=== PATIENT | female | born 1975 | race American Indian/Alaskan Native ===

== ENCOUNTER 2018-12-20 21:47 | Emergency (ER) | payer OTHER ==
[2018-12-20] MEDS ORDERED: ZOFRAN IV ONE (22:49)
[2018-12-20] MEDS ORDERED: BENTYL IM ONE (22:49)
[2018-12-20] MEDS ORDERED: NACL 0.9% 1000 ML 1,000 ML IV ONE (22:49)
[2018-12-20] MEDS ORDERED: PEPCID IV ONE (22:49)
[2018-12-21] MEDS ORDERED: MORPHINE IV ONE (00:17)
--- NOTE | 2018-12-21 00:27 | Cat Scan Report ---
CT head/brain wo con INDICATION: l't side numbness, dizziness. TECHNIQUE: All CT scans at this location are performed using the following dose modulation technique: Automated exposure control. CONTRAST: None. COMPARISON: None available. FINDINGS: The ventricular system is appropriate in size and configuration without midline shift. Nega tive for mass, stroke or hemorrhage. Imaged portions of the paranasal sinuses are clear. IMPRESSION: Negative CT brain without contrast. Signer Name: Armando Pereyar MD Signed: 12/21/2018 12:23 AM Workstation Name: [id number]
[2018-12-21 00:32] LABS: BUN/Creatinine Ratio 7; Blood Urea Nitrogen 7 mg/dL (7-17)
[2018-12-21 00:33] LABS: Alanine Aminotransferase 14 units/L (7-56); Albumin 3.7 g/dL (3.9-5); Calcium 8.8 mg/dL (8.4-10.2); Hemolysis Index 164
--- NOTE | 2018-12-21 00:34 | XRay Report ---
CHEST 1 VIEW INDICATION: ABD PAIN. COMPARISON: 05/09/2012. FINDINGS: Support devices: None. Heart: Within normal limits. Lungs/Pleura: No acute air space or interstitial disease. Lung volumes are mildly diminished. Additional findings: None. IMPRESSION: Diminished lung volumes. Signer Name: Armando Pereyra MD Signed: 12/21/2018 12:30 AM Workstation Name: [id number]
--- NOTE | 2018-12-21 00:36 | XRay Report ---
ABDOMEN 1 VIEW(S) INDICATION / CLINICAL INFORMATION: NVD epigastric pain. COMPARISON: None available. FINDINGS: TUBES / LINES: None. BOWEL GAS PATTERN: No significant abnormality. ADDITIONAL FINDINGS: Calcified uterine fibroid. Previous percutaneous fallopian tube closure. Previou s surgery left upper quadrant. IMPRESSION: No acute abnormality. Signer Name: Armando Pereyra MD Signed: 12/21/2018 12:31 AM Workstation Name: [id number]
[2018-12-21 02:24] VITALS: BP 130/64
[2018-12-21 02:26] LABS: Hematocrit 40.5 % (30.3-42.9); Hemoglobin 13.2 gm/dl (10.1-14.3); Mean Corpuscular HGB Conc 33 % (30-34); Mean Corpuscular Volume 86 fl (79-97); Platelet Count 292 K/mm3 (140-440); Red Blood Count 4.74 M/mm3 (3.65-5.03); Red Cell Distribution Width 13.8 % (13.2-15.2)
--- NOTE | 2018-12-21 02:27 | Emergency Department Report ---
ED General Adult HPI - General Chief complaint: Chest Pain Stated complaint: CHEST PAIN Time Seen by Provider: 12/20/18 22:42 Source: patient, EMS Mode of arrival: Stretcher Limitations: No Limitations - History of Present Illness Initial comments: Patient is a 43 year-old female who is presenting with some epigastric/chest pain. Patient states that 3 days ago symptoms started with nausea and diarrhea. Patient states that his been present for 3 days straight. She's had multiple episodes of nonbloody diarrhea. Patient states she says some weakness as well. Patient states he laid down at approximately 7 PM last night and woke up around 9 PM this chest discomfort. Patient states that the pain is epigastric and sometimes radiates into the upper chest and she also feels some left arm and leg tingling and chin numbness. EMS was called and patient was given aspirin prior to arrival. Patient states pain in the chest wall from a 7 out of 10 to a 3. Patient's denied having any weakness in her arms or legs or difficulty speaking. Severity scale (0 -10): 5 - Related Data Previous Rx's Medication Instructions Recorded Last Taken Type ALBUTEROL Inhaler (OR & NICU) 2 puff IH QID PRN #1 inhalation 03/23/13 Unknown Rx [ProAir HFA Inhaler] Benzonatate [Tessalon Perle] 200 mg PO TID #30 capsule 03/23/13 Unknown Rx Allergies Allergy/AdvReac Type Severity Reaction Status Date / Time No Known Allergies Allergy Unverified 03/23/13 08:16 ED Review of Systems ROS: Stated complaint: CHEST PAIN Other details as noted in HPI Comment: All other systems reviewed and negative ED Past Medical Hx - Past Medical History Previous Medical History?: Yes Hx Hypertension: Yes Hx Diabetes: Yes - Surgical History Past Surgical History?: Yes Additional Surgical History: gastric bipass - Social History Smoking Status: Never Smoker Substance Use Type: None - Medications Home Medications: Home Medications Medication Instructions Recorded Confirmed Last Taken Type ALBUTEROL Inhaler (OR & NICU) 2 puff IH QID PRN #1 inhalation 03/23/13 Unknown Rx [ProAir HFA Inhaler] Benzonatate [Tessalon Perle] 200 mg PO TID #30 capsule 03/23/13 Unknown Rx ED Physical Exam - General Limitations: No Limitations General appearance: alert, in no apparent distress - Head Head exam: Present: atraumatic, normocephalic - Eye Eye exam: Present: normal appearance, PERRL, EOMI - ENT ENT exam: Present: mucous membranes moist - Neck Neck exam: Present: normal inspection - Respiratory Respiratory exam: Present: normal lung sounds bilaterally. Absent: respiratory distress, wheezes, rales, rhonchi - Cardiovascular Cardiovascular Exam: Present: regular rate, normal rhythm, normal heart sounds. Absent: systolic murmur, diastolic murmur, rubs, gallop - GI/Abdominal GI/Abdominal exam: Present: soft, tenderness (epigadtric), normal bowel sounds, hyperactive bowel sounds. Absent: distended, guarding, rebound, rigid - Extremities Exam Extremities exam: Present: normal inspection - Back Exam Back exam: Present: normal inspection - Neurological Exam Neurological exam: Present: alert, oriented X3, CN II-XII intact, normal gait. Absent: motor sensory deficit - Psychiatric Psychiatric exam: Present: normal affect, normal mood - Skin Skin exam: Present: warm, dry, intact, normal color. Absent: rash ED Course Vital Signs 12/20/18 12/20/18 12/20/18 22:20 22:30 23:31 Temperature 98 F Pulse Rate 86 73 73 Respiratory 14 16 12 Rate Blood Pressure 131/77 129/73 129/73 O2 Sat by Pulse 98 98 98 Oximetry 12/21/18 12/21/18 00:00 00:33 Temperature Pulse Rate 67 Respiratory 16 16 Rate Blood Pressure 121/65 O2 Sat by Pulse 99 Oximetry ED Medical Decision Making - Lab Data Result diagrams: 12/20/18 22:42 Lab Results 12/20/18 12/20/18 12/20/18 Range/Units 22:42 22:42 22:42 Sodium 139 (137-145) mmol/L Potassium 5.1 H (3.6-5.0) mmol/L Chloride 100 (98-107) mmol/L Carbon Dioxide 21 L (22-30) mmol/L Anion Gap 23 mmol/L BUN 7 (7-17) mg/dL Creatinine 1.0 (0.7-1.2) mg/dL Estimated GFR > 60 ml/min BUN/Creatinine Ratio 7 % Glucose 96 (65-100) mg/dL Calcium 8.8 (8.4-10.2) mg/dL Total Bilirubin 0.20 (0.1-1.2) mg/dL AST 25 (5-40) units/L ALT 14 (7-56) units/L Alkaline Phosphatase 82 (35-129) units/L Troponin T 0.010 (0.00-0.029) ng/mL Total Protein 7.3 (6.3-8.2) g/dL Albumin 3.7 L (3.9-5) g/dL Albumin/Globulin Ratio 1.0 % Lipase 570 H (13-60) units/L - EKG Data -: EKG Interpreted by Me EKG shows normal: sinus rhythm, axis, intervals, QRS complexes, ST-T waves Rate: normal - EKG Data Interpretation: normal EKG - Radiology Data Chest x-ray with abdominal series shows no acute process. Head CT was done as well without contrast which showed no acute process. - Medical Decision Making Patient is a 43-year-old female who is presenting with epigastric disco mfort. Patient also has had some nausea as with diarrhea. Patient's pain increased again to 7 out of 10 and she was given Pepcid and Zofran and morphine. Patient's at the time of transfer and has a pain level IV. Patient's labs or studies show that patient has acute pancreatitis. Patient is diabetic. Patient has no increased pain with food intake or right upper quadrant pain. Patient also denies alcohol abuse. Patient's Tegretol otitis is likely secondary to her diabetes.. Patient has [facility] insurance and I did speak with Dr. Mckinney with [place] at 1:[address] Huang did inform me that the patient will be transferred to him at [place] under Dr. Albert. He should transferred in stable condition. Critical care attestation.: If time is entered above; I have spent that time in minutes in the direct care of this critically ill patient, excluding procedure time. ED Disposition Clinical Impression: Acute pancreatitis Qualifiers: Pancreatitis type: unspecified pancreatitis type Acute pancreatitis complication: unspecified Qualified Code(s): K85.90 - Acute pancreatitis without necrosis or infection, unspecified Disposition: [id number]/TX-[id number] ANOTHER TYPE HLTHCARE Is pt being admited?: No Does the pt Need Aspirin: No Condition: Stable Forms: Accompanied Note Time of Disposition: 02:27
== END 2018-12-21 03:24 | disposition other institution (70) ==
LOC: ED 21:47
DX: K85.90 Acute pancreatitis without necrosis or infection, unspecified (principal); R42 Dizziness and giddiness; I10 Essential (primary) hypertension; E11.9 Type 2 diabetes mellitus without complications; Z98.890 Other specified postprocedural states; Z79.899 Other long term (current) drug therapy
CPT/HCPCS: 36415; 70450; 71045; 74019; 80053; 83690; 84484; 85025; 93005; 93010; 96361; 96372; 96374; 96375; 99285; J0500; J2270; J2405; J7030